=== PATIENT | male | born 1995 | race Caucasian/White ===

== ENCOUNTER 2018-09-19 12:23 | Emergency (ER) | payer BC, SELFPAY ==
[2018-09-19] MEDS ORDERED: PROMETHAZINE 25 MG/ML VIAL ONE (12:50)
[2018-09-19 13:12] LABS: Absolute Lymphocytes (CBC) 1.3 K/uL (0.7-4.9); Basophils % 0.3 % (0-1.3); Eosinophils % 1.5 % (0-4.4); Hematocrit 43.6 % (39.6-49.0); Lymphocytes % 10.5 % (15.3-44.8); MPV 10.7 fL (7.6-11.3); RBC Red Blood Cell Count 4.64 M/uL (4.33-5.43)
[2018-09-19 13:29] LABS: BUN Blood Urea Nitrogen 11 mg/dL (7-18); Bicarbonate 20 mmol/L (21-32); Glucose Level 164 mg/dL (74-106); Phenytoin (Dilantin) Level 1.6 ug/mL (10.0-20.0); Potassium 4.1 mmol/L (3.5-5.1); Sodium Level 142 mmol/L (136-145)
--- NOTE | 2018-09-19 13:31 | ER ---
Nurse's Notes [facility] Name: Carlos Zimmerman Age: 23 yrs Sex: Male : 1995 Arrival Date: 09/19/2018 Time: 12:32 Bed 8 Private MD: Diagnosis: Epilepsy and recurrent seizures Presentation: 09/19 12:30 Presenting complaint: EMS states: witnessed seizure by family that lasted about 5 mins, sv pt was post ictal on EMS arrival. c/o nausea. BP 150/80 HR-110, BS-169, 20 G R hand, Zofran 8 mg IVP given. Transition of care: patient was not received from another setting of care. Onset of symptoms was September 19, 2018. Risk Assessment: Do you want to hurt yourself or someone else? Patient reports no desire to harm self or others. Initial Sepsis Screen: Does the patient meet any 2 criteria? No. Patient's initial sepsis screen is negative. Does the patient have a suspected source of infection? No. Patient's initial sepsis screen is negative. Care prior to arrival: IV initiated. 20 GA, in the right hand, Glucose check: 169. 12:30 Method Of Arrival: EMS: [address] [facility] sv 12:30 Acuity: ASTRID 3 sv Triage Assessment: 12:30 General: Appears in no apparent distress. comfortable, well developed, Behavior is sv calm, cooperative, appropriate for age. Pain: Denies pain. Neuro: Level of Consciousness is awake, alert, obeys commands, Oriented to person, place, time, situation, Moves all extremities. Full function Speech is normal. Respiratory: Respiratory effort is even, unlabored, Respiratory pattern is regular, symmetrical. Derm: Skin is pink, warm \T\ dry. Musculoskeletal: Range of motion: intact in all extremities. Historical: - Allergies: 13:05 No Known Allergies; sv - Home Meds: 13:05 Depakote Oral [Active]; sv - PMHx: 13:05 Seizures; sv - Immunization history:: Adult Immunizations up to date. - Ebola Screening: : No symptoms or risks identified at this time. - Social history:: Smoking status: Patient/guardian denies using tobacco. Screenin:06 Abuse screen: Denies threats or abuse. Denies injuries from another. Nutritional sv screening: No deficits noted. Tuberculosis screening: No symptoms or risk factors identified. Fall Risk None identified. Assessment: 13:08 Reassessment: Patient appears in no apparent distress at this time. No changes from sv previously documented assessment. Patient and/or family updated on plan of care and expected duration. Pain level reassessed. Patient is alert, oriented x 3, equal unlabored respirations, skin warm/dry/pink. 13:46 Reassessment: Patient appears in no apparent distress at this time. No changes from sv previously documented assessment. Patient and/or family updated on plan of care and expected duration. Pain level reassessed. Patient is alert, oriented x 3, equal unlabored respirations, skin warm/dry/pink. Vital Signs: 13:03 BP 128 / 79; Pulse 83; Resp 20; Temp 98.3; Pulse Ox 96% ; Weight 103 kg; Height 6 ft. sv (182.88 cm); Pain 0/10; 13:17 BP 141 / 85; Pulse 97; Resp 18; Temp 99.5(O); Pulse Ox 99% on R/A; mh5 13:03 Body Mass Index 30.80 (103.00 kg, 182.88 cm) sv [place] Coma Score: 12:30 Eye Response: spontaneous(4). Verbal Response: oriented(5). Motor Response: obeys sv commands(6). Total: 15. ED Course: 12:30 Initial lab(s) drawn, by me, sent to lab. Maintain EMS IV. Dressing intact. Good blood sv return noted. Site clean \T\ dry. Gauge \T\ site: 20G R hand. Flushed right hand with 5 ml normal saline. 12:32 Patient arrived in ED. sv 12:33 Todd Leyva PA is PHCP. jr8 12:33 Jeffry Broderick MD is Attending Physician. jr8 12:40 Patient has correct armband on for positive identification. Bed in low position. Call sv light in reach. Side rails up X2. Seizure precautions initiated. Pulse ox on. NIBP on. Door closed. Head of bed elevated. 13:00 Jessenia Bo RN is Primary Nurse. sv 13:03 Triage completed. sv 13:06 Arm band placed on. sv 13:07 Awaiting lab results. sv 13:18 Warm blanket given. sv 13:47 No provider procedures requiring assistance completed. IV discontinued, intact, sv bleeding controlled, No redness/swelling at site. Pressure dressing applied. Administered Medications: 12:35 Drug: Phenergan 12.5 mg Route: IVP; Site: right hand; sv 13:00 Follow up: Response: No adverse reaction sv Outcome: 13:31 Discharge ordered by MD. lam 13:47 Discharged to home via wheelchair, with family. sv 13:47 Condition: stable 13:47 Discharge instructions given to patient, family, Instructed on discharge instructions, follow up and referral plans. Demonstrated understanding of instructions, follow-up care. 13:47 Patient left the ED. sv Signatures: Jessenia Bo RN RN sv Todd Leyva PA PA jr8 Chata Molina [facility] Corrections: (The following items were deleted from the chart) 13:05 13:03 BP 128 / 79; Pulse 83bpm; Resp 20bpm; Pulse Ox 96%; Temp 98.3F; Pain 0/10; sv sv
--- NOTE | 2018-09-19 13:31 | EDPHYS ---
Physician Documentation [facility] Name: Carlos Zimmerman Age: 23 yrs Sex: Male : 1995 Arrival Date: 09/19/2018 Time: 12:32 Bed 8 Private MD: ED Physician Jeffry Broderick HPI: 09/19 12:54 This 23 yrs old Male presents to ER via Unassigned with complaints of jr8 Seizure, Nausea. 12:54 The patient presents after having a single isolated seizure. Character of seizure(s): jr8 Loss of consciousness: the patient experienced loss of consciousness, Motor activity: generalized, Incontinence: none, Apnea: the patient did not experience apnea, Circulation: the patient did not experience evidence of pulse disturbance, Eye movements: are unknown. Seizure onset: just prior to arrival. Context: the seizure(s) was witnessed, by family, occurred at home, occurred while the patient was at rest, Contributing factors: unknown. Seizure Hx: Original onset: longstanding. Associated injury: The patient did not suffer any apparent associated injury. EMS care: IV fluids. Current symptoms: Currently, the patient is not experiencing any symptoms, the patient feels back to baseline, no decreased level of consciousness, no confusion, no dysphasia, no headache, no paralysis, no visual changes. The patient has experienced similar episodes in the past, several times. The patient has not recently seen a physician. Currently on Dilantin for seizures. Denies change in medications, recent stressors or illness. [place] ok until just prior to seizure. Started to become nauseated. Now feeling much better and wanting to go home . Historical: - Allergies: 13:05 No Known Allergies; sv - Home Meds: 13:05 Depakote Oral [Active]; sv - PMHx: 13:05 Seizures; sv - Immunization history:: Adult Immunizations up to date. - Ebola Screening: : No symptoms or risks identified at this time. - Social history:: Smoking status: Patient/guardian denies using tobacco. ROS: 12:54 Eyes: Negative for injury, pain, redness, and discharge, ENT: Negative for injury, jr8 pain, and discharge, Neck: Negative for injury, pain, and swelling, Cardiovascular: Negative for chest pain, palpitations, and edema, Respiratory: Negative for shortness of breath, cough, wheezing, and pleuritic chest pain, Back: Negative for injury and pain, MS/Extremity: Negative for injury and deformity, Skin: Negative for injury, rash, and discoloration. 12:54 Abdomen/GI: Positive for nausea, vomiting, Negative for abdominal pain, diarrhea, constipation, abdominal cramps, abdominal distension, anorexia, dysphagia, hematemesis, black/tarry stool, rectal pain, rectal bleeding, bowel incontinence, flatulence. 12:54 Neuro: Positive for seizure activity. Exam: 12:54 Eyes: Pupils equal round and reactive to light, extra-ocular motions intact. Lids and jr8 lashes normal. Conjunctiva and sclera are non-icteric and not injected. Cornea within normal limits. Periorbital areas with no swelling, redness, or edema. ENT: Nares patent. No nasal discharge, no septal abnormalities noted. Tympanic membranes are normal and external auditory canals are clear. Oropharynx with no redness, swelling, or masses, exudates, or evidence of obstruction, uvula midline. Mucous membranes moist. Neck: Trachea midline, no thyromegaly or masses palpated, and no cervical lymphadenopathy. Supple, full range of motion without nuchal rigidity, or vertebral point tenderness. No Meningismus. Cardiovascular: Regular rate and rhythm with a normal S1 and S2. No gallops, murmurs, or rubs. Normal PMI, no JVD. No pulse deficits. Respiratory: Lungs have equal breath sounds bilaterally, clear to auscultation and percussion. No rales, rhonchi or wheezes noted. No increased work of breathing, no retractions or nasal flaring. Abdomen/GI: Soft, non-tender, with normal bowel sounds. No distension or tympany. No guarding or rebound. No evidence of tenderness throughout. Back: No spinal tenderness. No costovertebral tenderness. Full range of motion. Skin: Warm, dry with normal turgor. Normal color with no rashes, no lesions, and no evidence of cellulitis. MS/ Extremity: Pulses equal, no cyanosis. Neurovascular intact. Full, normal range of motion. Neuro: Awake and alert, GCS 15, oriented to person, place, time, and situation. Cranial nerves II-XII grossly intact. Motor strength 5/5 in all extremities. Sensory grossly intact. Cerebellar exam normal. Normal gait. Vital Signs: 13:03 BP 128 / 79; Pulse 83; Resp 20; Temp 98.3; Pulse Ox 96% ; Weight 103 kg; Height 6 ft. sv (182.88 cm); Pain 0/10; 13:17 BP 141 / 85; Pulse 97; Resp 18; Temp 99.5(O); Pulse Ox 99% on R/A; mh5 13:03 Body Mass Index 30.80 (103.00 kg, 182.88 cm) sv [place] Coma Score: 12:30 Eye Response: spontaneous(4). Verbal Response: oriented(5). Motor Response: obeys sv commands(6). Total: 15. MDM: 12:33 Patient medically screened. 8 13:30 Data reviewed: vital signs, nurses notes, lab test result(s), and as a result, I will jr8 discharge patient. Data interpreted: Pulse oximetry: on room air is 99 %. Interpretation: normal. Counseling: I had a detailed discussion with the patient and/or guardian regarding: the historical points, exam findings, and any diagnostic results supporting the discharge/admit diagnosis, lab results, the need for outpatient follow up, a family practitioner, to return to the emergency department if symptoms worsen or persist or if there are any questions or concerns that arise at home. Response to treatment: the patient's symptoms have resolved after treatment, patient is well hydrated. 09/19 12:34 Order name: CBC with Diff; Complete Time: 13:14 8 09/19 12:34 Order name: Basic Metabolic Panel; Complete Time: 13:30 [facility] 09/19 12:34 Order name: IV; Complete Time: 13:01 [facility] 09/19 12:34 Order name: Phenytoin (dilantin); Complete Time: 13:30 [facility] Administered Medications: 12:35 Drug: Phenergan 12.5 mg Route: IVP; Site: right hand; sv 13:00 Follow up: Response: No adverse reaction sv Disposition: 15:50 Co-signature as Attending Physician, Jeffry Broderick MD. rn Disposition: 09/19/18 13:31 Discharged to Home. Impression: Epilepsy and recurrent seizures. - Condition is Stable. - Discharge Instructions: Seizure, Adult. - Medication Reconciliation Form, Thank You Letter, Antibiotic Education, Prescription Opioid Use form. - Follow up: Private Physician; When: 2 - 3 days; Reason: Recheck today's complaints, Continuance of care, Re-evaluation by your physician. - Problem is new. - Symptoms have improved. Signatures: Dispatcher [employer] Jessenia Nye RN RN sv Nieto, Roman, MD MD rn Roszak, Josh, PA PA jr8 Corrections: (The following items were deleted from the chart) 13:47 13:31 09/19/2018 13:31 Discharged to Home. Impression: Epilepsy and recurrent seizures. sv Condition is Stable. Forms are Medication Reconciliation Form, Thank You Letter, Antibiotic Education, Prescription Opioid Use. Follow up: Private Physician; When: 2 - 3 days; Reason: Recheck today's complaints, Continuance of care, Re-evaluation by your physician. Problem is new. Symptoms have improved. jr8
[2018-09-19 21:37] VITALS: BP 141/85; TEMP 99.5; O2SAT 99
== END 2018-09-19 13:47 | disposition home or self-care (01) ==
LOC: ER 12:23
DX: G40.802 Other epilepsy, not intractable, without status epilepticus (principal); R11.2 Nausea with vomiting, unspecified
CPT/HCPCS: 36415; 80048; 80185; 85025; 96374; 99284; J2550

== ENCOUNTER 2020-05-26 16:51 | Emergency (ER) | payer BC ==
--- NOTE | 2020-05-26 16:56 | ER ---
Nurse's Notes [facility] Name: Carlos Zimmerman Age: 24 yrs Sex: Male : 1995 Arrival Date: 05/26/2020 Time: 16:52 Bed 18 Private MD: Diagnosis: Presentation: 05/26 16:56 Note Received report from EMS, Pt declined treatment due to him feeling better. Left bw Ambulatory without assistance. Verbalized understanding of leaving the hospital without seeing an MD. ED Course: 16:52 Patient arrived in ED. vg1 Administered Medications: No medications were administered Outcome: 16:56 Patient left the ED. Signatures: Yoselin Boggs RN RN vg1 Rowena Phelan RN RN bw
== END 2020-05-26 16:56 | disposition left against medical advice (07) ==
LOC: ER 16:51
DX: Z02.9 Encounter for administrative examinations, unspecified (principal)

== ENCOUNTER 2021-03-05 11:14 | Observation (INO) | payer BC, SELFPAY ==
[2021-03-05] MEDS ORDERED: KETOROLAC 30 MG/ML INJ ONE (12:29)
[2021-03-05 13:01] LABS: Basophils % 0.5 % (0-1.3); Hematocrit 37.9 % (39.6-49.0); Lymphocytes % 5.1 % (15.3-44.8); MPV 10.6 fL (7.6-11.3); RBC Red Blood Cell Count 4.16 M/uL (4.33-5.43)
--- NOTE | 2021-03-05 13:06 | RAD REPORT ---
EXAM DESCRIPTION: CT - [id number] - 03/05/2021 12:52 pm CLINICAL HISTORY: Trauma, head and neck injury. Seizure;Pain COMPARISON: No comparisons TECHNIQUE: Axial 5 mm thick images of the head were obtained. Axial 2 mm thick images of the cervical spine were obtained with sagittal and coronal reconstruction images generated and reviewed. All CT scans are performed using dose optimization technique as appropriate and may include automated exposure control or mA/KV adjustment according to patient size. FINDINGS: CT HEAD WITHOUT CONTRAST: No acute hemorrhage, hydrocephalus or extra-axial collection is identified.No areas of brain edema or midline shift. The paranasal sinuses and mastoids are clear.The calvarium is intact. CT CERVICAL SPINE WITHOUT CONTRAST: No fracture or subluxation.No prevertebral soft tissues swelling is identified. IMPRESSION: No acute intracranial or cervical spine findings.
[2021-03-05 13:15] LABS: Phenytoin (Dilantin) Level 1.1 ug/mL (10.0-20.0); Potassium 3.3 mmol/L (3.5-5.1)
[2021-03-05] MEDS ORDERED: FOSPHENYTOIN PE 500 MG/10 ML VIAL ONE (13:32)
[2021-03-05] MEDS ORDERED: NA CHLORIDE 0.9% 250 ML ONE (13:33)
[2021-03-05 13:48] LABS: Barbiturates NEGATIVE (NEGATIVE); Benzodiazepines NEGATIVE (NEGATIVE); Cocaine NEGATIVE (NEGATIVE); METHAMPHETAM NEGATIVE (NEGATIVE); Methadone NEGATIVE (NEGATIVE); Opiates NEGATIVE (NEGATIVE); Phencyclidine NEGATIVE (NEGATIVE); THC Cannibis POSITIVE (NEGATIVE)
[2021-03-05 14:05] LABS: Blood Morphology Comment NOT SEEN (NOT SEEN); Platelet Estimate ADEQ; White Blood Cell Scan OK (OK)
[2021-03-05] MEDS ORDERED: NA CHLORIDE 0.9% 1,000 ML ONE (14:14)
--- NOTE | 2021-03-05 14:15 | EDPHYS ---
Physician Documentation [facility] Name: Carlos Zimmerman Age: 25 yrs Sex: Male : 1995 Arrival Date: 03/05/2021 Time: :25 Bed 4 Private MD: ED Physician Ricky Collazo HPI: 03/05 14:17 This 25 yrs old Male presents to ER via EMS with complaints of Seizure. kdr 17:08 The patient presents with a history of multiple seizures, an unknown number, Seizures kdr generally tend to be relatively brief in a minute or less. Character of seizure(s): Loss of consciousness: the patient experienced loss of consciousness, Motor activity: Patient assumes a somewhat tonic state and is groaning or moaning and growling, Incontinence: none, Apnea: the patient did not experience apnea, Circulation: the patient did not experience evidence of pulse disturbance, Eye movements: the eyes did not move. Seizure onset: this morning. Context: the seizure(s) was witnessed, by family, occurred at home, occurred while the patient was at rest. Seizure Hx: Last seizure: The patient's last seizure "not sure", Usual frequency: Seizure medications: phenytoin, It is unclear how compliant the patient is with his medication regimen. He is supposedly taking 2 tabs in the morning and 2 in the evening of his Dilantin. Associated injury: The patient did not suffer any apparent associated injury. Current symptoms: confusion, Patient still appears to be slightly postictal. The patient has experienced similar episodes in the past, multiple times. Historical: - Allergies: 11:36 No Known Allergies; jg9 - PMHx: 11:36 Seizures; jg9 - Immunization history:: Adult Immunizations unknown, unknown Pneumococcal vaccine status is unknown, Flu vaccine status is unknown. - Social history:: Smoking status: unknown. ROS: 17:08 Constitutional: Negative for fever, chills, and weight loss, Eyes: Negative for injury, kdr pain, redness, and discharge, Neck: Negative for injury, pain, and swelling, Cardiovascular: Negative for chest pain, palpitations, and edema, Respiratory: Negative for shortness of breath, cough, wheezing, and pleuritic chest pain, Abdomen/GI: Negative for abdominal pain, nausea, vomiting, diarrhea, and constipation, Back: Negative for injury and pain, : Negative for injury, bleeding, discharge, and swelling, MS/Extremity: Negative for injury and deformity, Skin: Negative for injury, rash, and discoloration, Psych: Negative for depression, anxiety, suicide ideation, homicidal ideation, and hallucinations, Allergy/Immunology: Negative for hives, rash, and allergies, Endocrine: Negative for neck swelling, polydipsia, polyuria, polyphagia, and marked weight changes, Hematologic/Lymphatic: Negative for swollen nodes, abnormal bleeding, and unusual bruising. 17:08 Neuro: Positive for altered mental status, seizure activity, weakness. Exam: 17:08 Constitutional: This is a well developed, well nourished patient who is awake, alert, kdr and in no acute distress. Head/Face: Normocephalic, atraumatic. Patient does have evidence of emesis. Family relates that he did vomit at least once today during his seizure episode Neck: Trachea midline, no thyromegaly or masses palpated, and no cervical lymphadenopathy. Supple, full range of motion without nuchal rigidity, or vertebral point tenderness. No Meningismus. Chest/axilla: Normal chest wall appearance and motion. Nontender with no deformity. No lesions are appreciated. Cardiovascular: Regular rate and rhythm with a normal S1 and S2. No gallops, murmurs, or rubs. Normal PMI, no JVD. No pulse deficits. Respiratory: Lungs have equal breath sounds bilaterally, clear to auscultation and percussion. No rales, rhonchi or wheezes noted. No increased work of breathing, no retractions or nasal flaring. Abdomen/GI: Soft, non-tender, with normal bowel sounds. No distension or tympany. No guarding or rebound. No evidence of tenderness throughout. Back: No spinal tenderness. No costovertebral tenderness. Full range of motion. Skin: Warm, dry with normal turgor. Normal color with no rashes, no lesions, and no evidence of cellulitis. MS/ Extremity: Pulses equal, no cyanosis. Neurovascular intact. Full, normal range of motion. Psych: Awake, alert, with orientation to person, place and time. Behavior, mood, and affect are within normal limits. 17:08 Neuro: Orientation: to person, place \\T\\ time. Mentation: lucid, able to follow commands, In general the patient appeared to be near though not at his baseline. During his stay in the ED, he did have at least one other seizure episode similar to what had been reported. During a period of time he rocks back and forth and made a snoring or moaning sound this lasted for only a few seconds and then he began to become back to baseline. Vital Signs: 11:30 BP 142 / 75; Pulse 97; Resp 21 S; Temp 98.3(O); Pulse Ox 100% on R/A; Weight 99.79 kg jg9 (R); Height 5 ft. 8 in. (172.72 cm) (R); 11:38 BP 142 / 75; Pulse 97; Resp 21 S; Pulse Ox 100% on R/A; jg9 12:41 BP 138 / 78; Pulse 98; Resp 14 S; Pulse Ox 100% on R/A; jg9 13:30 BP 124 / 62; Pulse 102; Resp 21; Pulse Ox 98% on 1 lpm NC; jg9 14:00 BP 99 / 91; Pulse 99; Resp 16 S; Pulse Ox 97% on 1 lpm NC; jg9 14:30 BP 122 / 64; Pulse 75; Resp 14 S; Pulse Ox 98% on 1 lpm NC; jg9 15:00 BP 108 / 58; Pulse 100; Resp 19 S; Pulse Ox 99% on 1 lpm NC; jg9 16:00 BP 126 / 68; Pulse 101; Resp 14 S; Pulse Ox 98% on R/A; jg9 17:30 BP 138 / 54; Pulse 86; Resp 24 S; Pulse Ox 93% on R/A; jg9 11:30 Body Mass Index 33.45 (99.79 kg, 172.72 cm) j9 [place] Coma Score: 11:36 Eye Response: spontaneous(4). Verbal Response: oriented(5). Motor Response: obeys jg9 commands(6). Total: 15. 13:30 Eye Response: spontaneous(4). Verbal Response: oriented(5). Motor Response: obeys jg9 commands(6). Total: 15. MDM: 14:14 Patient medically screened. kdr 17:13 Data reviewed: vital signs, nurses notes, lab test result(s), radiologic studies, CT kdr scan, MRI. 03/05 12:19 Order name: CBC with Diff kdr 03/05 12:19 Order name: Chem 7; Complete Time: 13:26 kdr 03/05 12:19 Order name: UDS; Complete Time: 14:04 kdr 03/05 12:19 Order name: ETOH Level; Complete Time: 13:26 kdr 03/05 12:19 Order name: Dilantin; Complete Time: 13:26 kdr 03/05 13:02 Order name: CBC Smear Scan EDMS 03/05 12:19 Order name: CT Head C Spine; Complete Time: 13:07 kdr 03/05 16:25 Order name: Magnesium EDMS 03/05 16:25 Order name: CBC with Automated Diff EDMS 03/05 16:25 Order name: CBC with Automated Diff EDMS 03/05 16:25 Order name: Comprehensive Metabolic Panel EDMS 03/05 16:25 Order name: Comprehensive Metabolic Panel EDMS 03/05 16:51 Order name: COVID-19 SARS RT PCR (Document "Date of Onset" if Symptomatic) eb 03/05 16:25 Order name: CONS Physician Consult EDDE 03/05 16:25 Order name: Regular EDMS Administered Medications: 12:55 Drug: Ketorolac 15 mg Route: IVP; Site: right antecubital; [facility] 13:30 Follow up: Response: No adverse reaction; Marked relief of symptoms [facility] 13:38 Dru grams of (CEREbyx (fosphenytoin) 1 grams, NS 0.9% 250 ml) Route: IVPB; Site: [facility] right antecubital; 14:11 Follow up: IV Status: Completed infusion; IV Intake: 250ml jg9 14:22 Drug: NS 0.9% 1000 ml Route: IV; Rate: 2 bolus; Site: right antecubital; j9 17:00 Follow up: IV Status: Completed infusion; IV Intake: 1000ml jg9 Disposition Summary: 03/05/21 14:14 Hospitalization Ordered Hospitalization Status: Observation kdr Provider: Humberto La kdr Condition: Fair kdr Problem: new kdr Symptoms: have improved kdr Bed/Room Type: Standard kdr Location: Telemetry/MedSurg (observation)(03/05/21 19:31) mw Room Assignment: 408(03/05/21 19:32) mw Diagnosis - Other seizures - Subtherapeutic on Dilantin kdr Forms: - Medication Reconciliation Form kdr - SBAR form kdr Signatures: Dispatcher [employer] EDMS Elizabeth Phelan RN RN Ricky Collazo MD MD [facility] Lisseth Anderson Jennifer jg9 Corrections: (The following items were deleted from the chart) 16:53 14:14 Telemetry/MedSurg (observation) kdr eb 16:53 14:14 kdr eb 19:31 16:53 [facility] ER HOLD eb mw 19:31 16:53 ERHOLD- eb mw 19:32 19:31 mw mw
--- NOTE | 2021-03-05 14:15 | ER ---
Nurse's Notes [facility] Name: Carlos Zimmerman Age: 25 yrs Sex: Male : 1995 Arrival Date: 03/05/2021 Time: 11:25 Bed 4 Private MD: Diagnosis: Other seizures-Subtherapeutic on Dilantin Presentation: 03/05 11:30 Chief complaint: EMS states: Per EMS patient is coming from home and per family patient suleiman has had 3 seizures in the last 24 h, last episode 1hr prior to EMS arrival. EMS advised that patient seizures present as hearing and vision loss-patient does not display typical tonic clonic, patient alert oriented when they arrived c/o a headache, thirst and nausea-patient given 4 mg Zofran [id number] improved. BGL 203, VSS, NS on monitor. Coronavirus screen: Vaccine status: Patient reports being unvaccinated. Patient reports he is unable to remember if he received the covid vaccine. Ebola Screen: Patient negative for fever greater than or equal to 101.5 degrees Fahrenheit, and additional compatible Ebola Virus Disease symptoms Patient denies exposure to infectious person. Patient denies travel to an Ebola-affected area in the 21 days before illness onset. Initial Sepsis Screen: Does the patient meet any 2 criteria? Yes Does the patient have a suspected source of infection? No. Patient's initial sepsis screen is negative. Risk Assessment: Do you want to hurt yourself or someone else? Patient reports no desire to harm self or others. Onset of symptoms is unknown. 11:30 Method Of Arrival: EMS: [facility] jg9 11:30 Acuity: ASTRID 3 jg9 12:01 Coronavirus screen: Vaccine status:. Note Family members at bedside reporting patient suleiman has not received COVID, flu, or pnuemonai vaccine, they report that the patient has fallen in the last 24 hr, and they report that they are trying to determine if his seizure activity is secondary to his blood glucose level being low due to family Hx (Mom) of having low Bgl. Family goes on to report that patient did have emesis and is covered in it at this time and after any seizure activity the patient has a headache and sleeps. Family would also like social services manager consult so they can gather information in order to apply for social security. Triage Assessment: 11:36 General: Appears unkempt, Behavior is restless. Pain: Complains of pain in head-c/o jg9 headache; not specific. EENT: No deficits noted. Neuro: No deficits noted. Cardiovascular: No deficits noted. Respiratory: No deficits noted. GI: Reports nausea. : No deficits noted. Derm: No deficits noted. Musculoskeletal: No deficits noted. Historical: - Allergies: 11:36 No Known Allergies; jg9 - PMHx: 11:36 Seizures; jg9 - Immunization history:: Adult Immunizations unknown, unknown Pneumococcal vaccine status is unknown, Flu vaccine status is unknown. - Social history:: Smoking status: unknown. Screenin:38 Abuse screen: Denies threats or abuse. Denies injuries from another. Nutritional jg9 screening: No deficits noted. Tuberculosis screening: No symptoms or risk factors identified. Fall Risk None identified. Assessment: 11:40 General: Appears in no apparent distress. unkempt, Behavior is drowsy. Pain: Complains jg9 of pain in head-c/o generalized headache. Neuro: No deficits noted. Cardiovascular: No deficits noted. Respiratory: No deficits noted. GI: Reports nausea. : No deficits noted. EENT: No deficits noted. Derm: No deficits noted. Musculoskeletal: No deficits noted. 12:00 Reassessment: Patient appears in no apparent distress at this time. No changes from jg9 previously documented assessment. Patient and/or family updated on plan of care and expected duration. Pain level reassessed. 13:35 Reassessment: Patient family reported possible seizure activity, when assessed by this jg9 nurse patient was alert, responsive and able to answer questions but he was diaphoretic and tachycardic, per family they did not tell anyone immediately because they were not sure if he was actually having a seizure; provider notified. . Reassessment:. 17:35 Reassessment: see [facility] for charting. g9 19:16 General: Received report. Please see [facility] for further charting. . tw5 Vital Signs: 11:30 BP 142 / 75; Pulse 97; Resp 21 S; Temp 98.3(O); Pulse Ox 100% on R/A; Weight 99.79 kg jg9 (R); Height 5 ft. 8 in. (172.72 cm) (R); 11:38 BP 142 / 75; Pulse 97; Resp 21 S; Pulse Ox 100% on R/A; jg9 12:41 BP 138 / 78; Pulse 98; Resp 14 S; Pulse Ox 100% on R/A; jg9 13:30 BP 124 / 62; Pulse 102; Resp 21; Pulse Ox 98% on 1 lpm NC; jg9 14:00 BP 99 / 91; Pulse 99; Resp 16 S; Pulse Ox 97% on 1 lpm NC; jg9 14:30 BP 122 / 64; Pulse 75; Resp 14 S; Pulse Ox 98% on 1 lpm NC; jg9 15:00 BP 108 / 58; Pulse 100; Resp 19 S; Pulse Ox 99% on 1 lpm NC; jg9 16:00 BP 126 / 68; Pulse 101; Resp 14 S; Pulse Ox 98% on R/A; jg9 17:30 BP 138 / 54; Pulse 86; Resp 24 S; Pulse Ox 93% on R/A; jg9 11:30 Body Mass Index 33.45 (99.79 kg, 172.72 cm) jg9 Jeff Coma Score: 11:36 Eye Response: spontaneous(4). Verbal Response: oriented(5). Motor Response: obeys jg9 commands(6). Total: 15. 13:30 Eye Response: spontaneous(4). Verbal Response: oriented(5). Motor Response: obeys jg9 commands(6). Total: 15. ED Course: 11:25 Patient arrived in ED. eb 11:26 Ricky Collazo MD is Attending Physician. kdr 11:30 Osiris Glez is Primary Nurse. jg9 11:36 Triage completed. jg9 11:39 Patient has correct armband on for positive identification. Bed in low position. Call jg9 light in reach. Seizure precautions initiated. 11:39 Arm band placed on right wrist. jg9 11:41 Maintain EMS IV. Dressing intact. Good blood return noted. Site clean \T\ dry. Gauge \T\ jg 9 site: 20 right AC. 12:52 CT Head C Spine In Process Unspecified. EDMS 13:55 Appears to be sleeping. Pt visited by Female relatives. jg9 14:13 Humberto La MD is Hospitalizing Provider. kdr 14:49 Appears to be sleeping. Awaiting bed assignment. jg9 19:15 Primary Nurse role handed off by Osiris Glez [facility] 19:15 Emerald Jackson is Primary Nurse. tw5 19:16 No provider procedures requiring assistance completed. Patient admitted, IV remains in tw5 place. Administered Medications: 12:55 Drug: Ketorolac 15 mg Route: IVP; Site: right antecubital; jg9 13:30 Follow up: Response: No adverse reaction; Marked relief of symptoms jg9 13:38 Dru grams of (CEREbyx (fosphenytoin) 1 grams, NS 0.9% 250 ml) Route: IVPB; Site: [facility] right antecubital; 14:11 Follow up: IV Status: Completed infusion; IV Intake: 250ml jg9 14:22 Drug: NS 0.9% 1000 ml Route: IV; Rate: 2 bolus; Site: right antecubital; jg9 17:00 Follow up: IV Status: Completed infusion; IV Intake: 1000ml jg9 Intake: 14:11 IV: 250ml; Total: 250ml. jg9 17:00 IV: 1000ml; Total: 1250ml. jg9 Outcome: 14:14 Decision to Hospitalize by Provider. kdr 17:34 Admitted to ER Hold. Please see [facility] for further documentation. jg9 19:16 Condition: stable tw5 20:01 Admitted to Med/surg Report called to called report to Jessenia SCHROEDER tw5 20:01 Condition: stable 20:57 Patient left the ED. [facility] Signatures: Dispatcher [employer] EDMS Ricky Collazo MD MD kdr Botello, Elizabeth eb Wood, Tiffany [facility] Osiris Glez jg9 Corrections: (The following items were deleted from the chart) 13:58 12:01 Reassessment: jg9 jg9 16:16 15:00 IV Status: Completed infusion; IV Intake: 250ml j9 jg9
[2021-03-05] MEDS ORDERED: ACETAMINOPHEN 500 MG TAB PO PRN (16:19)
[2021-03-05] MEDS ORDERED: MORPHINE 2 MG/ML SYR IV PRN (16:19)
--- NOTE | 2021-03-05 16:19 | P.HP ---
Certification for Inpatient Patient admitted to: Observation With expected LOS: >2 Midnights Patient will require the following post-hospital care: None Practitioner: I am a practitioner with admitting privileges, knowledge of patient current condition, hospital course, and medical plan of care. Services: Services provided to patient in accordance with Admission requirements found in Title 42 Section 412.3 of the Code of Federal Regulations Patient History Date of Service: 03/05/21 Reason for admission: Seizure episode History of Present Illness: 25-year-old with history of seizure disorder, chronic tobacco use follows with Dr. Saldana developed seizure activity this morning upon waking up. Patient denies any urine incontinence. She was brought to the ED. Dr Saldana has been contacted and recommended loading with IV fosphenytoin . Patient is somewhat drowsy but able to talk. He states he is compliant with his medication including Depakote. He denies any fever chills Allergies No Known Allergies Allergy (Verified 02/21/15 23:09) Home Medications: Omeprazole [Prilosec] 40 mg PO DAILY 02/21/15 Promethazine HCl 25 mg PO Q6HP PRN 02/21/15 Magnesium Oxide [Mag 0X*] 400 mg PO BID #60 tab 02/24/15 PHENYTOIN ER Cap [Dilantin ER Cap*] 100 mg PO TID #90 cap 02/24/15 - Past Medical/Surgical History Diabetic: No -: Depression -: Tooth Extraction - Family History Mother -: Hypertension, Seizures, Other (see notes) Notes: Depression - Social History Alcohol use: Yes CD- Drugs: Yes Caffeine use: Yes Review of Systems 10-point ROS is otherwise unremarkable Physical Examination - Physical Exam General: Alert, Obese HEENT: Atraumatic, Normocephalic, PERRLA Neck: Supple, 2+ carotid pulse no bruit, JVD not distended Respiratory: Clear to auscultation bilaterally, Normal air movement Cardiovascular: No edema, Normal S1 S2 Gastrointestinal: Normal bowel sounds, Soft and benign, Non-distended Musculoskeletal: No clubbing, No swelling Integumentary: No rashes, No breakdown Neurological: Normal gait, Normal speech, Normal strength at 5/5 x4 extr, Normal tone External genitalia: No edema, No lesions - Studies Laboratory Data (last 24 hrs) 03/05/21 12:53: Sodium 140, Potassium 3.3 L, BUN 9, Creatinine 1.04, Glucose 167 H 03/05/21 12:53: WBC 19.70 H, Hgb 12.7 L, Hct 37.9 L, Plt Count 218 Assessment and Plan - Problems (Diagnosis) (1) Seizure Onset Date: 02/23/15 Current Visit: No Status: Acute - Plan Plan We will admit to observation -Gentle IV fluid -Telemetry monitoring Continue fosphenytoin Neuro consult with Dr. Saldana , may need adjustment of home medication Continue DVT and GI prophylaxis - Advance Directives Does patient have a Living Will: No Does patient have a Durable POA for Healthcare: No Physician Review: Patient Assessed, Agree with Above Assessment and Plan Critical Care: No Time Spent Managing Pts Care (In Minutes): 60
[2021-03-05] MEDS ORDERED: LORazepam 2 MG/ML VIAL IV PRN (16:21)
[2021-03-05] MEDS ORDERED: HYDRALAZINE HCL 20 MG/ML VIAL IV PRN (16:21)
[2021-03-05] MEDS: Ringers Lactate 1,000 ML IV SCH (17:00)
[2021-03-05] MEDS: NICOTINE 21 MG/PAT TD SCH (17:00)
[2021-03-05] MEDS ORDERED: POTASSIUM 25 MEQ EFFERV TAB PO ONE (17:00)
[2021-03-05] MEDS: FOSPHENYTOIN PE 100 MG/2 ML VIAL IV SCH (17:00)
[2021-03-05] MEDS ORDERED: POTASSIUM 25 MEQ EFFERV TAB ONE (18:45)
[2021-03-05] MEDS ORDERED: NICOTINE 21 MG/PAT TD ONE (18:46)
[2021-03-05] MEDS ORDERED: Ringers Lactate 1,000 ML IV ONE (18:46)
[2021-03-05] MEDS ORDERED: INFLUENZA VACCINE (for 6+ mo) 0.5 ML DOSE IMVAC ONE (20:00)
[2021-03-05] MEDS ORDERED: PNEUMOCOCCAL VACCINE 0.5 ML IMVAC ONE (20:00)
[2021-03-05] MEDS: MAGNESIUM OXIDE 400 MG TAB PO SCH (20:35)
[2021-03-05] MEDS ORDERED: MELATONIN 5 MG TABLET PO PRN (21:51)
[2021-03-05 21:53] VITALS: BMI 31.7
[2021-03-06] MEDS: FOSPHENYTOIN PE 100 MG/2 ML VIAL IV SCH ×2 (01:00→09:24)
[2021-03-06] MEDS ORDERED: FOSPHENYTOIN PE 100 MG/2 ML VIAL ONE (01:01)
[2021-03-06] MEDS: Ringers Lactate 1,000 ML IV SCH ×2 (01:20→09:00)
[2021-03-06 05:15] LABS: Absolute Lymphocytes (CBC) 1.9 K/uL (0.7-4.9); Basophils % 0.4 % (0-1.3); Hematocrit 35.6 % (39.6-49.0); Lymphocytes % 19.7 % (15.3-44.8); MPV 10.9 fL (7.6-11.3); RBC Red Blood Cell Count 3.88 M/uL (4.33-5.43)
[2021-03-06 05:40] LABS: ALT/SGPT 24 U/L (12-78); AST/SGOT 20 U/L (15-37); Albumin 3.1 g/dL (3.4-5.0); Alkaline Phosphatase 57 U/L (45-117); BUN Blood Urea Nitrogen 8 mg/dL (7-18); Bicarbonate 24 mmol/L (21-32); Bilirubin Total 0.3 mg/dL (0.2-1.0); Glucose Level 127 mg/dL (74-106); Potassium 3.2 mmol/L (3.5-5.1); Protein, Total 5.9 g/dL (6.4-8.2); Sodium Level 144 mmol/L (136-145)
[2021-03-06] MEDS ORDERED: PANTOPRAZOLE 40MG TABLET PO SCH (07:30)
[2021-03-06 08:06] VITALS: BP 142/73; TEMP 99
[2021-03-06] MEDS ORDERED: HOME MED 1 EA UNK (Omeprazole [Prilosec] 40 MG Capsule.Dr) PO SCH (09:00)
[2021-03-06] MEDS: MAGNESIUM OXIDE 400 MG TAB PO SCH (09:00)
[2021-03-06] MEDS ORDERED: NA CHLORIDE 0.9% 100 ML ONE (09:00)
[2021-03-06] MEDS: NICOTINE 21 MG/PAT TD SCH (09:24)
[2021-03-06 10:30] VITALS: O2SAT 99
--- NOTE | 2021-03-06 10:32 | P.DS ---
Admission Date: 03/05/21 Discharge Date: 03/06/21 Disposition: ROUTINE DISCHARGE Discharge Condition: FAIR Reason for Admission: Seizure episode - Problems (1) Seizure Onset Date: 02/23/15 Current Visit: No Status: Acute Brief History of Present Illness: 25-year-old with history of seizure disorder, chronic tobacco use follows with Dr. Saldana developed seizure activity this morning upon waking up. Patient denies any urine incontinence. She was brought to the ED. Dr Saldana has been contacted and recommended loading with IV fosphenytoin . Patient is somewhat drowsy but able to talk. He states he is compliant with his medication including Depakote. He denies any fever chills Hospital Course: Patient with history of seizure disorder, recent marijuana intermittent use admitted for seizure episode today. On arrival in the ED patient was still drowsy after forced phenytoin loading. Patient became more awake and conversant. Tolerating p.o. well. Neurology Dr. Randall was consulted. Patient was taking phenytoin twice daily dose has been increased to 3 times daily now as phenytoin level was low on presentation at 1.1. Patient will be discharged home today to follow-up with neurology as outpatient. Vital Signs/Physical Exam: Temp Pulse Resp BP Pulse Ox 99 F 84 15 142/73 H 99 03/06/21 08:00 03/06/21 08:00 03/06/21 08:00 03/06/21 08:00 03/06/21 08:00 General: Alert, In no apparent distress, Oriented x3 HEENT: Atraumatic, Normocephalic, PERRLA Neck: Supple, 2+ carotid pulse no bruit Respiratory: Clear to auscultation bilaterally, Normal air movement Cardiovascular: No edema, Normal pulses, Regular rate/rhythm, Normal S1 S2 Gastrointestinal: Normal bowel sounds, Soft and benign, Non-distended Musculoskeletal: No clubbing, No swelling Neurological: Normal speech, Normal strength at 5/5 x4 extr External genitalia: No edema, No lesions Laboratory Data at Discharge: WBC 9.50 K/uL (4.3-10.9) D 03/06/21 04:16 Hgb 12.0 g/dL (13.6-17.9) L 03/06/21 04:16 Hct 35.6 % (39.6-49.0) L 03/06/21 04:16 Plt Count 171 K/uL (152-406) D 03/06/21 04:16 Sodium 144 mmol/L (136-145) 03/06/21 04:16 Potassium 3.2 mmol/L (3.5-5.1) L 03/06/21 04:16 BUN 8 mg/dL (7-18) 03/06/21 04:16 Creatinine 0.67 mg/dL (0.55-1.3) 03/06/21 04:16 Glucose 127 mg/dL (74-106) H 03/06/21 04:16 Magnesium 2.1 mg/dL (1.8-2.4) 03/05/21 17:25 Total Bilirubin 0.3 mg/dL (0.2-1.0) 03/06/21 04:16 AST 20 U/L (15-37) 03/06/21 04:16 ALT 24 U/L (12-78) 03/06/21 04:16 Alkaline Phosphatase 57 U/L (45-117) 03/06/21 04:16 Home Medications: Melatonin 10 mg PO BEDTIME 03/05/21 PHENYTOIN ER Cap [Dilantin ER Cap] 100 mg PO TID #90 cap 03/06/21 New Medications: PHENYTOIN ER Cap [Dilantin ER Cap] 100 mg PO TID #90 cap Diet: Regular Activity: Ad félix Followup: NONE,NONE [Primary Care Provider] - Time spent managing pt's care (in minutes): 35
[2021-03-06] MEDS ORDERED: PHENYTOIN ER 100 MG CAP PO SCH (21:00)
[2021-03-06] MEDS ORDERED: MELATONIN 5 MG TABLET PO SCH (21:00)
== END 2021-03-06 12:47 | disposition home or self-care (01) ==
LOC: ER 11:14 → ERHOLD 17:02 → 4TH 19:51
PROVIDERS: ADMIT Internal Medicine; ATTEND Internal Medicine
DX: R56.9 Unspecified convulsions (principal); F12.90 Cannabis use, unspecified, uncomplicated; Z20.822 Contact with and (suspected) exposure to COVID-19
CPT/HCPCS: 36415; 70450; 72125; 80048; 80053; 80185; 80307; 80320; 83735; 85025; 96361; 96365; 96375; 99285; G0378; J7030; J7050; J7120; Q2009; U0003

== ENCOUNTER 2024-03-25 22:40 | Emergency (ER) | payer OTHER, SELFPAY ==
--- NOTE | 2024-03-25 23:14 | ER ---
Nurse's Notes [facility] Name: Carlos Zimmerman Age: 28 yrs Sex: Male : 1995 Arrival Date: 03/25/2024 Time: 22:40 Bed 15 Private MD: Diagnosis: Disequilibrium;Head injury;Altered mental status;Phenytoin toxicity Presentation: 03/25 22:52 Chief complaint: Patient states: I fell and hit my head twice today, but did not pass bm8 out. Coronavirus screen: At this time, the client does not indicate any symptoms associated with coronavirus-19. Ebola Screen: Patient negative for fever greater than or equal to 101.5 degrees Fahrenheit, and additional compatible Ebola Virus Disease symptoms Patient denies exposure to infectious person. Patient denies travel to an Ebola-affected area in the 21 days before illness onset. No symptoms or risks identified at this time. Initial Sepsis Screen: Does the patient meet any 2 criteria? No. Patient's initial sepsis screen is negative. Does the patient have a suspected source of infection? No. Patient's initial sepsis screen is negative. Risk Assessment: Do you want to hurt yourself or someone else? Patient reports no desire to harm self or others. Onset of symptoms is unknown. 22:52 Method Of Arrival: Wheelchair bm8 22:52 Acuity: ASTRID 3 bm8 Triage Assessment: 22:53 General: Appears in no apparent distress. comfortable, Behavior is calm, cooperative, bm8 appropriate for age. Pain: Complains of pain in scalp Pain currently is 5 out of 10 on a pain scale. EENT: No signs and/or symptoms were reported regarding the EENT system. Neuro: Level of Consciousness is awake, alert, obeys commands, Oriented to person, place, time, situation, Appropriate for age [facility] Nurse are equal bilaterally Moves all extremities. Full function Gait is unsteady, Speech is slurred, Facial symmetry appears normal, Pupils are Pupil Size: 4 mm. Cardiovascular: Denies chest pain, Capillary refill < 3 seconds in bilateral fingers Patient's skin is warm and dry. Respiratory: Airway is patent Trachea midline Respiratory effort is even, unlabored, Respiratory pattern is regular, symmetrical, Breath sounds are clear bilaterally. GI: No signs and/or symptoms were reported involving the gastrointestinal system. : No signs and/or symptoms were reported regarding the genitourinary system. Derm: No signs and/or symptoms reported regarding the dermatologic system. Musculoskeletal: No signs and/or symptoms reported regarding the musculoskeletal system. Historical: - Allergies: 22:53 No Known Allergies; bm8 - Home Meds: 22:53 Unable to obtain [Active]; bm8 - PMHx: 22:53 Seizures; bm8 - PSHx: 22:53 Unable to Obtain; bm8 - Immunization history:: Adult Immunizations up to date. - Infectious Disease History:: Denies. - Social history:: Smoking status: unknown Patient uses street drugs, marijuana. Screenin:55 [facility] ED Fall Risk Assessment (Adult) History of falling in the last 3 months, rg5 including since admission Yes- physiologic fall (2 pts) Confusion or Disorientation No (0 pts) Intoxicated or Sedated No (0 pts) Impaired Gait Yes (1 pt) Mobility Assist Device Used Yes (1 pt) Altered Elimination No (0 pt) Score/Fall Risk Level 3 or more points = High Risk Oriented to surroundings, Maintained a safe environment, Hourly rounding (assess needs \T\ fall precautionary measures) done, Used ambulatory aids as needed (educated on \T\ assisted with). Abuse screen: Denies threats or abuse. Nutritional screening: No deficits noted. Tuberculosis screening: No symptoms or risk factors identified. Assessment: 22:55 General: Appears in no apparent distress. comfortable, Behavior is calm, cooperative, rg5 appropriate for age. 22:55 Pain: Denies pain. Neuro: Level of Consciousness is awake, alert, obeys commands, rg5 Oriented to person, place, time, Seizure activity reported prior to arrival. Cardiovascular: Denies chest pain, Patient's skin is warm and dry. Respiratory: Airway is patent Trachea midline Respiratory effort is even, unlabored, Respiratory pattern is regular, symmetrical. GI: Abdomen is flat, non-distended. : No signs and/or symptoms were reported regarding the genitourinary system. EENT: Reports blurred vision. Derm: Skin is intact, Skin is dry, Skin is normal, Skin temperature is warm. Musculoskeletal: Circulation, motion, and sensation intact. Range of motion: intact in all extremities. 23:30 Reassessment: No changes from previously documented assessment. Patient and/or family rg5 updated on plan of care and expected duration. Pain level reassessed. Patient is alert, oriented x 3, equal unlabored respirations, skin warm/dry/pink. 03/26 00:38 Reassessment: No changes from previously documented assessment. Patient and/or family rg5 updated on plan of care and expected duration. Pain level reassessed. Patient is alert, oriented x 3, equal unlabored respirations, skin warm/dry/pink. 01:35 Reassessment: Patient and/or family updated on plan of care and expected duration. Pain rg5 level reassessed. Patient is alert, oriented x 3, equal unlabored respirations, skin warm/dry/pink. Patient states feeling better. 02:14 Reassessment: Patient and/or family updated on plan of care and expected duration. Pain rg5 level reassessed. Patient is alert, oriented x 3, equal unlabored respirations, skin warm/dry/pink. Patient states feeling better. Vital Signs: 03/25 22:52 BP 188 / 96; Pulse 94; Resp 18; Temp 98.5; Pulse Ox 100% ; Weight 70.31 kg; Height 5 bm8 ft. 9 in. ; Pain 5/10; 22:58 BP 158 / 114; Pulse 93; Resp 18; Pulse Ox 99% on R/A; Pain 0/10; rg5 23:30 BP 152 / 92; Pulse 97; Resp 18; Pulse Ox 99% on R/A; Pain 0/10; rg5 03/26 00:28 BP 139 / 89; Pulse 96; Resp 17; Pulse Ox 98% on R/A; Pain 0/10; rg5 01:15 BP 149 / 99; Pulse 83; Resp 17; Pulse Ox 97% on R/A; Pain 0/10; rg5 03/25 22:52 Body Mass Index 22.89 (70.31 kg, 175.26 cm) bm8 03/25 22:52 Pain Scale: Adult bm8 22:58 Pain Scale: Adult rg5 23:30 Pain Scale: Adult rg5 03/26 00:28 Pain Scale: Adult rg5 01:15 Pain Scale: Adult rg5 Vitals: 03/25 22:55 Cardiac Rhythm Assessment Regular Sinus rhythm. rg5 Vista Coma Score: 22:53 Eye Response: spontaneous(4). Motor Response: obeys commands(6). Verbal Response: bm8 oriented(5). Total: 15. 22:57 Eye Response: spontaneous(4). Motor Response: obeys commands(6). Verbal Response: rg5 oriented(5). Total: 15. ED Course: 22:41 Patient arrived in ED. mr 22:45 Justus Nolan MD is Attending Physician. rt 22:50 Seizure precautions initiated. rg5 22:50 Inserted saline lock: 20 gauge in left antecubital area, using aseptic technique. Blood rg5 collected. Flushed with 10 mL NS. 22:53 Triage completed. bm8 22:53 Arm band placed on right wrist. bm8 22:54 Scott Fisher, ALEXANDRE is Primary Nurse. rg5 22:55 Patient has correct armband on for positive identification. Bed in low position. Call rg5 light in reach. Side rails up X2. Adult w/ patient. Warm blanket given. Verbal reassurance given. 22:55 Fall risk band placed. rg5 22:55 No provider procedures requiring assistance completed. rg5 23:42 initiated transfer to [facility] spoke with serene asked for ER -ER transfer transfer center asked if [facility] was aware of all transfers that were being initiated advised that yes they were. 03/26 00:36 Per Smiley at [facility] transfer center patient was denied to [facility] as well as [facility]. 00:41 initiated transfer with [facility] spoke with Lakshmi. vk 00:55 per Lakshmi at [facility] patient was denied due to capacity of beds. vk 01:01 initiated transfer with [facility] spoke with Cheyanne. vk 01:55 initiated transport with EMS spoke with Pedro Luis advised patient was accepted. vk 02:12 Provided Education on: POST ER CARE. rg5 02:12 Patient transferred, IV remains in place. intact, bleeding controlled, No rg5 redness/swelling at site. Pressure dressing applied. Administered Medications: :53 Drug: Keppra PO 500 mg PO once Route: PO; rg5 02:16 Follow up: Response: No adverse reaction rg5 Medication: 03/25 22:55 VIS not applicable for this client. rg5 Outcome: 23:14 ER care complete, transfer ordered by . rt 03/26 02:11 Transferred by [facility] to [facility], rg5 Condition: stable Instructed on the need for transfer, 02:16 Patient left the ED. rg5 Signatures: Kinjal Marie, Reg Reg mr Justus Nolan MD MD rt Kruse, Vivian vk McDonald, Brad RN RN bm8 Scott Fisher, ALEXANDRE RN rg5
--- NOTE | 2024-03-25 23:14 | EDPHYS ---
Physician Documentation [facility] Name: Carlos Zimmerman Age: 28 yrs Sex: Male : 1995 Arrival Date: 03/25/2024 Time: 22:40 Bed 15 Private MD: ED Physician Justus Nolan HPI: 03/25 23:28 This 28 yrs old Male presents to ER via Wheelchair with complaints of Seizure. rt 23:28 Patient presents to the ED with multiple falls, reported head trauma. Patient states rt that he has had progressively worsening loss of equilibrium over the past couple of weeks. He has fallen, hitting his head multiple times. Patient reports of pain to his left cheek at this time. The patient's family states that he has had progressively worsening confusion, states that is normally coherent. Denies other acute complaints at this time, symptoms are moderate in severity, no other aggravating alleviating factors.. Historical: - Allergies: 22:53 No Known Allergies; bm8 - Home Meds: 22:53 Unable to obtain [Active]; bm8 - PMHx: 22:53 Seizures; bm8 - PSHx: 22:53 Unable to Obtain; bm8 - Immunization history:: Adult Immunizations up to date. - Infectious Disease History:: Denies. - Social history:: Smoking status: unknown Patient uses street drugs, marijuana. ROS: 03/26 00:02 Unable to obtain ROS due to altered mental status, rt Exam: 00:02 Chest/axilla: Normal chest wall appearance and motion. Nontender with no deformity. rt No lesions are appreciated. Cardiovascular: Regular rate and rhythm with a normal S1 and S2. No gallops, murmurs, or rubs. Normal PMI, no JVD. No pulse deficits. Respiratory: Lungs have equal breath sounds bilaterally, clear to auscultation and percussion. No rales, rhonchi or wheezes noted. No increased work of breathing, no retractions or nasal flaring. Abdomen/GI: Soft, non-tender, with normal bowel sounds. No distension or tympany. No guarding or rebound. No evidence of tenderness throughout. Skin: Warm, dry with normal turgor. Normal color with no rashes, no lesions, and no evidence of cellulitis. 00:02 Head/face: Contusion noted to the left maxillary area, no other external evidence of trauma. 00:02 ECG was reviewed by the Attending Physician. 00:02 Neuro: Moves all 4 extremities equally, sensation intact in upper lower extremities, is confused with slurred speech, nystagmus noted on right gaze deviation, cranial nerves otherwise intact, Vital Signs: 03/25 22:52 BP 188 / 96; Pulse 94; Resp 18; Temp 98.5; Pulse Ox 100% ; Weight 70.31 kg; Height 5 bm8 ft. 9 in. ; Pain 5/10; 22:58 BP 158 / 114; Pulse 93; Resp 18; Pulse Ox 99% on R/A; Pain 0/10; rg5 23:30 BP 152 / 92; Pulse 97; Resp 18; Pulse Ox 99% on R/A; Pain 0/10; rg5 03/26 00:28 BP 139 / 89; Pulse 96; Resp 17; Pulse Ox 98% on R/A; Pain 0/10; rg5 01:15 BP 149 / 99; Pulse 83; Resp 17; Pulse Ox 97% on R/A; Pain 0/10; rg5 03/25 22:52 Body Mass Index 22.89 (70.31 kg, 175.26 cm) bm8 03/25 22:52 Pain Scale: Adult bm8 22:58 Pain Scale: Adult rg5 23:30 Pain Scale: Adult rg5 03/26 00:28 Pain Scale: Adult rg5 01:15 Pain Scale: Adult rg5 [place] Coma Score: 03/25 22:53 Eye Response: spontaneous(4). Motor Response: obeys commands(6). Verbal Response: bm8 oriented(5). Total: 15. 22:57 Eye Response: spontaneous(4). Motor Response: obeys commands(6). Verbal Response: rg5 oriented(5). Total: 15. MDM: 22:53 Medical Screening Exam initiated rt 03/26 01:23 Differential diagnosis: Intracranial hemorrhage, facial fracture, phenytoin toxicity, rt seizure. Data reviewed: vital signs, nurses notes, lab test result(s), EKG. Care significantly affected by the following chronic conditions: Seizure disorder. ED course: Patient presents to the ED with worsening gait, altered mental status. Patient is found have a supratherapeutic phenytoin level, suspect the patient's presentation is due to phenytoin toxicity. Patient has had multiple falls with head injury. Unfortunately, CT scan at this facility is currently unavailable and CT scan is needed to rule out traumatic intracranial injury. For this reason, we will transfer patient to trauma center for scan, admission.. 03/25 23:00 Order name: Glucose, Ancillary Testing; Complete Time: 23:08 EDMS 03/25 23:09 Order name: Basic Metabolic Panel; Complete Time: 00:15 rt 03/25 23:09 Order name: CBC with Diff; Complete Time: 00:15 rt 03/25 23:09 Order name: LFT's; Complete Time: 00:15 rt 03/25 23:09 Order name: Magnesium; Complete Time: 00:15 rt 03/25 23:09 Order name: Troponin HS; Complete Time: 00:15 rt 03/25 23:09 Order name: CPK; Complete Time: 00:15 rt 03/25 23:09 Order name: ETOH Level; Complete Time: 00:15 rt 03/25 23:09 Order name: Dilantin; Complete Time: 00:15 rt 03/25 23:09 Order name: Cardiac monitoring; Complete Time: 23:28 rt 03/25 23:09 Order name: EKG - Nurse/Tech; Complete Time: 23:28 rt 03/25 23:09 Order name: IV Saline Lock; Complete Time: 23:28 rt 03/25 23:09 Order name: Labs collected and sent; Complete Time: 23:28 rt 03/25 23:09 Order name: O2 Per Protocol; Complete Time: 23:28 rt 03/25 23:09 Order name: O2 Sat Monitoring; Complete Time: 23:28 rt EC:02 Rate is 94 beats/min. Rhythm is regular, Normal Sinus Rhythm with No ectopy. QRS [place] rt is Normal. [place] interval is normal. QRS interval is normal. QT interval is normal. No Q waves. T waves are Normal. No ST changes noted. Interpreted by me. Administered Medications: 01:53 Drug: Keppra PO 500 mg PO once Route: PO; rg5 02:16 Follow up: Response: No adverse reaction rg5 Disposition Summary: 03/25/24 23:14 Transfer Ordered Notes: Reason: Higher level of care rt Condition: Fair rt Problem: new rt Symptoms: are unchanged rt Transfer Location: [facility](03/26/24 01:24) rt Accepting Physician: (03/26/24 02:16) rg5 Diagnosis - Disequilibrium rt - Head injury rt - Altered mental status rt - Phenytoin toxicity rt Forms: - Medication Reconciliation Form rt - SBAR form rt Critical care time excluding procedures: 02:00 Critical care time: Bedside Care: 30 minutes, Consultation: 10 minutes. Total time: 40 rt minutes Signatures: Dispatcher [employer] EDJustus Silva MD MD rt Chung Little RN RN bm8 Scott Fisher, ALEXANDRE RN rg5 Corrections: (The following items were deleted from the chart) 00:33 03/25 23:14 rt rt 03/26 01:24 03/25 23:14 [facility] rt rt 03/26 01:24 00:33 rt rt 02:16 01:24 rt rg5
[2024-03-25 23:30] LABS: Absolute Eosinophils 0.3 K/uL (0-0.5); Absolute Lymphocytes (CBC) 1.9 K/uL (0.7-4.9); Absolute Monocytes 0.9 K/uL (0.1-1.3); Absolute Neutrophil 6.4 K/uL (1.8-8.0); Basophils % 0.5 % (0-1.3); Hematocrit 44.4 % (39.6-49.0); Hemoglobin 15.1 g/dL (13.6-17.9); Lymphocytes % 19.9 % (15.3-44.8); MCH 33.2 pg (27.0-35.0); MCV 97.8 fL (80-100); MPV 9.4 fL (7.6-11.3); Monocytes % 9.6 % (3.3-12.3); Platelets 328 thou/uL (152-406); RBC Red Blood Cell Count 4.54 M/uL (4.33-5.43); Red Cell Distribution Width 13.5 % (12.1-15.2)
[2024-03-26 00:07] LABS: ALT/SGPT 39 U/L (16-61); AST/SGOT 21 U/L (15-37); Albumin/Globulin Ratio 1.3 (1.1-1.8); Alkaline Phosphatase 90 U/L (45-117); Anion Gap 8.4 mEq/L (5.0-15.0); BUN Blood Urea Nitrogen 7 mg/dL (7-18); Bicarbonate 30 mEq/L (21-32); Bilirubin Total 0.3 mg/dL (0.2-1.0); Creatine Phosphokinase 168 U/L (39-308); Globulin 3.2 g/dL (2.3-3.5); Glomerular Filtration Rate 125 ml/min (=/>90); Glucose Level 136 mg/dL (74-106); Magnesium 1.9 mg/dL (1.6-2.4); Potassium 3.4 mEq/L (3.5-5.1); Protein, Total 7.2 g/dL (6.4-8.2); Sodium Level 136 mEq/L (136-145)
[2024-03-26 00:08] LABS: Bilirubin Direct < 0.2 mg/dL (0-0.2); Bilirubin Indirect, Calculated 0.1 mg/dL (0.2-0.8); Troponin High Sensitivity < 3.0 pg/mL (<58.9)
[2024-03-26 00:09] LABS: Phenytoin (Dilantin) Level 48.5 mcg/mL (10.0-20.0)
[2024-03-26] MEDS ORDERED: levETIRAcetam 500 MG TAB ONE (01:51)
[2024-03-26 03:04] VITALS: TEMP 98.5
[2024-03-26 03:11] VITALS: BP 149/99; O2SAT 97
--- NOTE | 2024-04-01 11:06 | EKG ---
Test Date: 2024-03-25 Test Time: 23:22:27 Coating Manager: JANI MEASUREMENT RESULTS: Intervals: Rate: 94 [place]: 150 QRSD: 92 QT: 362 QTc: 452 [place]: P: 57 [place]: 150 QRS: 54 T: 59 INTERPRETIVE STATEMENTS: Normal sinus rhythm Normal ECG Compared to ECG 02/20/2015 14:04:05 Sinus arrhythmia no longer present Electronically Signed On 04-01-24 10:58:33 PREPARATION CENTER COORDINATOR by Eduardo Rehman
== END 2024-03-26 02:16 | disposition short-term general hospital (02) ==
LOC: ER 22:40
DX: E87.8 Other disorders of electrolyte and fluid balance, not elsewhere classified (principal); T42.0X5A Adverse effect of hydantoin derivatives, initial encounter; S09.90XA Unspecified injury of head, initial encounter
CPT/HCPCS: 36415; 80048; 80076; 80185; 82077; 82550; 82947; 83735; 84484; 85025; 93005; 99285